=== PATIENT | female | born 1970 | race Caucasian/White ===

== ENCOUNTER → 2019-09-21 13:10 | Outpatient (CLI) | payer OTHER, SELFPAY ==
--- NOTE | 2019-09-21 | DI.US.S_ITS ---
LIMITED ULTRASOUND OF LEFT BREAST: 09/21/2019 CLINICAL: Left palpable breast lump Followup on cysts size. Comparison is made to exams dated: 09/07/2018 ultrasound, 08/30/2018 mammogram, 09/19/2017 mammogram, and 03/31/2017 mammogram - [facility]. Color flow and real-time ultrasound of the left breast 10-12 o'clock region were performed on the areas of interest. There is a benign 2.1 cm x 1.7 cm x 3.1 cm oval cyst with a smooth internal wall in the left breast at 11 o'clock middle depth. This oval cyst is hypoechoic with a well-defined boundary and internal echoes. This correlates with mammography findings. Color flow imaging demonstrates that there is no vascularity present. IMPRESSION: BENIGN There is no sonographic evidence of malignancy. The 2.1 cm x 1.7 cm x 3.1 cm oval cyst in the left breast is benign. There is no abnormality seen in the left breast to correspond with the palpable abnormality at 10 o'clock, however, clinical followup is recommended. A 1 year screening mammogram is recommended. This exam was interpreted at Station ID: [id number]. Electronically Signed By: Higinio singleton/:09/21/2019 16:50:50 letter sent: Clinical Evaluation Ultrasound BI-RADS: 2 Benign
--- NOTE | 2019-09-21 | DI.RAD.S_ITS ---
PROCEDURE: FL SHOULDER INJECTION MR/CT LT INDICATIONS: LEFT SHOULDER PAIN,BREAT PAIN TECHNIQUE: The indications, alternatives, benefits, risks, and complications of the procedure were explained to the patient. Written informed consent was obtained and placed in the chart. The shoulder was examined fluoroscopically and a site for needle placement chosen for entry into the glenohumeral joint from an anterior approach. The skin was prepped and draped in a sterile fashion, and 1% lidocaine infiltrated from skin down to joint capsule. A spinal needle was inserted into the glenohumeral joint, and a small amount of iodinated contrast media injected to confirm intra-articular placement of the needle tip. This was followed by approximately 12 mL dilute solution of a gadolinium containing MR contrast agent. The needle was removed and a dressing was applied. The patient was given postprocedural instructions and sent to the MR suite for MR imaging. FINDINGS: A single fluoroscopic spot image demonstrates intra-articular location of injected iodinated contrast. IMPRESSION: Successful fluoroscopically guided administration of dilute Gadolinium solution into the shoulder joint for MR arthrogram. Dictated by: Dwayne Dueñas M.D. on 09/21/2019 at 14:55 Approved by: Dwayne Dueñas M.D. on 09/21/2019 at 14:56
--- NOTE | 2019-09-21 | DI.MRI.S_ITS ---
PROCEDURE: MR SHOULDER LT W CON INDICATIONS: LEFT SHOULDER PAIN,BREAT PAIN TECHNIQUE: After the administration of 12 mL of dilute intra-articular Gadolinium contrast, oblique coronal T1 and T2 spin echo with fat saturation, oblique sagittal T1 spin echo with and without fat saturation, oblique sagittal T2 fast spin echo with fat saturation, axial T1 spin echo with fat saturation through the shoulder. COMPARISON: None. FINDINGS: Image quality: Excellent. Rotator cuff: Tendinosis and low-grade articular and bursal surface partial-thickness tear involving distal supraspinatus at their insertion on humeral head is seen extending to musculotendinous junction. Distal subscapularis tendinosis and low-grade intrasubstance partial thickness tear is also likely present. No full-thickness rotator cuff tendon rupture. No significant rotator cuff muscle atrophy on sagittal images. Bones and bursae: No bone marrow contusions or fractures. Mild to moderate acromioclavicular joint osteoarthritic changes are seen.. Capsule and soft tissues: The labrum and glenohumeral ligaments appear intact. The long head of the biceps tendon demonstrates normal location and morphology. The rotator interval appears normal, without fibrosis. The coracohumeral ligament is of normal thickness. No intra-articular bodies. IMPRESSION: 1. Tendinosis and low-grade articular and bursal surface partial-thickness tear involving distal supraspinatus and infraspinatus at their insertion on humeral head extending to musculotendinous junction. Distal subscapularis tendinosis or low-grade intrasubstance partial thickness tear. No full-thickness rotator cuff tendon rupture. 2. Mild to moderate acromioclavicular joint osteoarthritis. 3. No gross focal labral tear. Dictated by: Lalo Garner M.D. on 09/21/2019 at 14:20 Approved by: Lalo Garner M.D. on 09/21/2019 at 14:26
--- NOTE | 2019-09-21 | DI.US.S_ITS ---
LIMITED ULTRASOUND OF RIGHT BREAST: 09/21/2019 CLINICAL: Follow up on cyst size. Comparison is made to exams dated: 09/07/2018 ultrasound, 08/30/2018 mammogram, 09/19/2017 mammogram, and 03/31/2017 mammogram - [facility]. Color flow and real-time ultrasound of the right breast 2-3 o'clock region were performed on the areas of interest. There is a benign 3.1 cm x 2 cm x 1.7 cm oval cyst in the right breast at 3 o'clock middle depth. This oval cyst is hypoechoic with a well-defined boundary and internal echoes. This correlates with mammography findings. Color flow imaging demonstrates that there is no vascularity present. IMPRESSION: BENIGN There is no sonographic evidence of malignancy. The 3.1 cm x 2 cm x 1.7 cm oval cyst in the right breast is benign. A 1 year screening mammogram is recommended. This exam was interpreted at Station ID: [id number]. Electronically Signed By: Higinio singleton/richard:09/21/2019 16:43:47 letter sent: Normal Exam Ultrasound BI-RADS: 2 Benign
--- NOTE | 2019-09-21 | DI.MG.S_ITS ---
BILATERAL DIGITAL DIAGNOSTIC MAMMOGRAM 3D/2D: 09/21/2019 CLINICAL: Breast pain left breast and right skin lesion. Comparison is made to exams dated: 08/30/2018 mammogram, 03/31/2017 mammogram, and 09/19/2017 mammogram - [facility]. The tissue of both breasts is heterogeneously dense. This may lower the sensitivity of mammography. Multiple circumscribed and obscured oval masses are redemonstrated bilaterally likely representing cysts. There is a 3.6 cm oval low density mass with an obscured and circumscribed margin in the right breast at 1 o'clock middle depth. This is increased in size. There is a 3.3 cm oval low density mass with an obscured and circumscribed margin in the left breast at 12 o'clock middle depth. This is increased in size. IMPRESSION: INCOMPLETE: NEEDS ADDITIONAL IMAGING EVALUATION The 3.6 cm oval low density mass in the right breast at 1 o'clock middle depth likely represents a cyst and is indeterminate. An ultrasound is recommended. The 3.3 cm oval low density mass in the left breast at 12 o'clock middle depth likely represents a cyst and is indeterminate. An ultrasound is recommended. There is no abnormality seen in the left breast to correspond with the palpable abnormality at 10 o'clock, however, ultrasound is recommended. This exam was interpreted at Station ID: [id number]. NOTE: For mammograms, a report in lay terms will be sent to the patient. Approximately 15% of breast malignancies will not be visualized mammographically. In the management of a palpable breast mass, a negative mammogram must not discourage biopsy of a clinically suspicious lesion. Electronically Signed By: Higinio Zelaya M.D. ddseth/:09/21/2019 15:36:58 ACR BI-RADS Category 0: Incomplete 3340F
== END ==
DX: M25.512 Pain in left shoulder (principal); M75.112 Incomplete rotator cuff tear or rupture of left shoulder, not specified as traumatic; M19.012 Primary osteoarthritis, left shoulder; N64.4 Mastodynia; N60.02 Solitary cyst of left breast; N60.01 Solitary cyst of right breast
CPT/HCPCS: 23350; 73222; 76642; 77002; 77066; G0279

== ENCOUNTER → 2020-04-30 08:35 | Outpatient (CLI) | payer OTHER, SELFPAY ==
--- NOTE | 2020-04-30 | DI.MRI.S_ITS ---
PROCEDURE: MR WRIST RT W CON INDICATIONS: RIGHT WRIST INJURY TECHNIQUE: After the administration of 3-4 mL of dilute intra-articular Gadolinium contrast into the radiocarpal compartment, coronal T1 spin echo with fat saturation and T2 fast spin echo with fat saturation, axial T1 spin echo and T2 fast spin echo with fat saturation, sagittal T1 spin echo with and without fat saturation through the wrist. COMPARISON: None. FINDINGS: Image quality: Excellent. Bones and cartilage: The carpal bones are normally aligned. No bone marrow contusions or fractures. No evidence for avascular necrosis. Overlying cartilage surfaces appear normal. Carpal ligaments: The scapholunate and lunotriquetral ligaments appear intact, without gadolinium extravasation into the mid-carpal compartment. The radioscaphocapitate and radiolunotriquetral ligaments appear intact. The arcuate ligament and short radiolunate ligament also appear normal. The dorsal intercarpal and radiotriquetral ligaments appear intact. On sagittal images, the pisohamate ligament appears intact. Triangular fibrocartilage complex: There is gadolinium extravasation into the distal radioulnar joint. Possible full thickness slit-like defect involving the junction of central disc and radial attachment for example image 9/4. The adjacent meniscal homolog appears normal. The ulnar collateral ligament appears intact. The extensor carpi ulnaris tendon is normal in location and morphology. Tendons and soft tissues: The carpal tunnel structures appear normal, including the median nerve. The ulnar nerve appears normal within Guyon's canal. Extensor tendons appear intact. There may be post-injection related changes. No soft tissue ganglion cysts. IMPRESSION: Leakage of injected gadolinium contrast material into the distal radioulnar joint raising the possibility of full-thickness pinpoint perforation at the junction of the central disc and radial attachment. This is not well visualized and recommend clinical correlation to exam findings. No definite nearby proximal carpal row/distal radial or ulnar chondromalacia. Dictated by: Dwayne Dueñas M.D. on 04/30/2020 at 11:44 Approved by: Dwayne Dueñas M.D. on 04/30/2020 at 11:51
--- NOTE | 2020-04-30 | DI.RAD.S_ITS ---
PROCEDURE: FL WRIST INJECTION MR/CT RT INDICATIONS: RIGHT WRIST INJURY COMPARISON: [facility], MR, MR WRIST RT W CON, 04/30/2020, 9:19. TECHNIQUE: After informed consent had been obtained, the wrist was examined fluoroscopically, and a site chosen for injection of the radiocarpal compartment from a dorsal approach. Skin was prepped and draped in a sterile fashion and 1% lidocaine infiltrated from the skin down to the articular surface. A hypodermic needle was then introduced into the articular space and a modest amount of contrast medium was instilled confirming intra-articular needle tip placement. This was followed by approximately 4 mL of a dilute gadolinium solution. Needle was removed and dressing was applied. The patient experienced no complications throughout the procedure and left the fluoroscopic suite in no apparent distress. FINDINGS: A single fluoroscopic spot image demonstrates intra-articular location to injected iodinated contrast. IMPRESSION: Successful fluoroscopic-guided administration of dilute Gadolinium solution for wrist MR arthrogram. Dictated by: Allen Heck M.D. on 04/30/2020 at 10:43 Approved by: Allen Heck M.D. on 04/30/2020 at 10:43
== END ==
PROVIDERS: Visit Provider Orthopaedic Surgery
DX: S69.81XS Other specified injuries of right wrist, hand and finger(s), sequela (principal); M65.831 Other synovitis and tenosynovitis, right forearm; X58.XXXS Exposure to other specified factors, sequela
CPT/HCPCS: 20605; 73222; 77002